=== PATIENT | male | born 1970 | race Caucasian/White ===

== ENCOUNTER 2023-08-17 22:08 | Emergency (ER) | payer SELFPAY ==
--- NOTE | ~2023-08-17 | CT_ITS ---
EXAMINATION: CT abdomen pelvis wo con DATE: 08/17/2023 23:25 INDICATION: Hematuria. Urinary retention. TECHNIQUE: Computed tomography (CT) of the abdomen and pelvis was performed without intravenous contr ast. Automated exposure control and iterative reconstruction technique were employed. The dose-length product was 1221.13 mGy-cm. COMPARISON: None. FINDINGS: The visualized portions of the lung bases are clear without pneumonia or pleural effusion. The heart size is normal. No pericardial effusion. There is diffuse hepatic steatosis. There are herrera ges of cholecystectomy. The spleen, pancreas, and adrenal glands are normal. There is a 12 mm cyst in right kidney. There is a 3 mm stone in left kidney. There is a left inguinal hernia containing fat. The prostate is moderately enlarged. The bladder is decompressed. There are no dilated loops of bowel . The appendix is not visualized. There are no pathologically enlarged lymph nodes. There is no free intraperitoneal fluid. There is severe thoracic and lumbar spondylosis. There is mild chronic anterio r wedging of multiple thoracic vertebral bodies. IMPRESSION: 1. 3 mm nonobstructing left kidney stone. 2. Diffuse hepatic steatosis. Reviewed, dictated and finalized at location E.
[2023-08-17 22:16] VITALS: BP 96/66; PULSE 112; RESP 15; TEMP 36.8; O2SAT 98
[2023-08-17 22:30] LABS: Basophils Absolute Auto 0.1 K/mm3 (0.0-0.1); Basophils Percent Auto 0.4 % (0.2-1.2); Eosinophils Absolute Auto 0.1 K/mm3 (0-0.3); Eosinophils Percent Auto 0.5 % (0-4.4); Hematocrit 47.6 % (42.0-52.0); Hemoglobin 16.6 g/dL (14.0-18.0); Immature Granulocyte Absolute 0.13 K/mm3 (0.00-0.031); Immature Granulocyte Percent A 0.6 % (0-0.5); Lymphocytes Absolute Auto 2.93 K/mm3 (0.9-3.2); Lymphocytes Percent Auto 14.6 % (18.3-44.2); Mean Corpuscular HGB Conc 34.9 g/dl (32-36); Mean Corpuscular Hemoglobin 32.9 pg (26-34); Mean Corpuscular Volume 94.4 fl (80-100); Mean Platelet Volume 9.3 fl (7.4-10.4); Monocytes Absolute Auto 1.3 K/mm3 (0.1-0.6); Monocytes Percent Auto 6.6 % (2.6-8.5); Neutrophils Absolute Auto 15.5 K/mm3 (1.3-6.7); Neutrophils Percent Auto 77.3 % (45.5-73.1); Platelet Count Result 257 k/mm3 (150-375); Red Blood Count 5.04 M/mm3 (4.6-6.20); Red Cell Distribution Width 12.8 % (11.5-14.5)
[2023-08-17 22:40] LABS: Alanine Aminotransferase 23 U/L (6-50); Albumin Level 4.8 g/dL (3.5-5.1); Alkaline Phosphatase 67 U/L (38-126); Anion Gap 11 mmol/L (4-12); Aspartate Amino Transferase 20 U/L (17-59); Bilirubin,Total 1.4 mg/dL (0.2-1.3); Blood Urea Nitrogen 15 mg/dL (9-20); Calcium 9.4 mg/dL (8.4-10.2); Carbon Dioxide 22 mmol/L (22-30); Chloride 103 mmol/L (98-107); Estimated CRCL calculation 83 ml/min; Estimated Glomerular Filt Rate > 60; Glucose 195 mg/dL (65-110); Potassium 3.9 mmol/L (3.4-5.0); Sodium 136 mmol/L (137-145)
--- NOTE | 2023-08-17 23:01 | ED.GENADULT ---
HPI - General Adult General Chief complaint: Urogenital-Male Stated complaint: blood in urine Time Seen by Provider: 08/17/23 22:43 History of Present Illness HPI narrative: This is a 53-year-old male presenting ED with chief complaint of hematuria x1 day.. Associated symptoms include 2 days of fever and chills, and achy testicle pain and diarrhea. Patient has a history BPH and takes Flomax. He denies nausea vomiting, chest pain difficulty breathing or abdominal pain. Patient is not sexually active. No penile discharge or concern for STDs. Related Data Allergies Allergy/AdvReac Type Severity Reaction Status Date / Time Penicillins Allergy Unknown Verified 08/17/23 22:09 shellfish derived Allergy Dyspnea / Verified 08/17/23 22:[address] [facility] Past Medical History Medical History (Updated 08/18/23 @ 01:26 by Viral Leigh MD) BPH (benign prostatic hyperplasia) Exam Narrative: APPEARANCE: No apparent distress. Head: atraumatic. EYES: EOMI, NOSE: Atraumatic NECK: Trachea midline RESPIRATORY: No increased rate of breathing clear to auscultation CARDIOVASCULAR: RRR, ABDOMINAL: Non-distended soft nontender no guarding rebound no CVA tenderness testicle exam: External genitalia normal, diffuse mile tenderness to both testicles with no point tenderness over the epididymis. Normal lie. Cremasteric reflex and intact. MUSCULOSKELETAl: No obvious deformities NEURO: Alert. Moving 4/4 extremities SKIN:: Warm, dry. Normal color PSYCHIATRIC: Normal affect Course Vital Signs Vital signs: Vital Signs Temperature 98.3 F 08/17/23 22:16 Pulse Rate 112 H 08/17/23 22:16 Respiratory Rate 15 08/17/23 22:16 Blood Pressure 96/66 L 08/17/23 22:16 Pulse Oximetry 98 08/17/23 22:16 Oxygen Delivery Room Air 08/17/23 22:16 Temperature 98.3 F 08/17/23 22:16 Pulse Rate 96 08/18/23 00:48 Respiratory Rate 15 08/18/23 00:48 Blood Pressure 88/64 L 08/18/23 00:48 Pulse Oximetry 96 08/18/23 00:48 Oxygen Delivery Room Air 08/17/23 22:16 Medical Decision Making [facility] Narrative Medical decision making narrative: -Course: 53-year-old male presenting with urinary symptoms and hypotension (60/40). Given fluid resuscitation and started on pip/tazo days ago for suspected UTI/orchitis. Improved patient is still hypotensive @ high 80s/50. Workup significant for a white count of 20, lactic 1.5. Urine indicative of infection. CT showed a decompressed urinary bladder any nonobstructing 3 mm left mid pole renal stone. No other findings. Patient in refractory septic shock from UTI. Discussed admission and the patient declined. 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 He initially wanted to leave AMA but of was eventually agreeable to leaving to get his things from a hotel and then states that he will be back to the hospital. At this point patient will leave against medical advice and we hope he returns shortly. 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 CT abdomen pelvis showed a nonobstructing 3 mm left mid pole renal stone and diverticulosis without diverticulitis. Independent EKG interpretation: Rhythm [sinus], Rate [], [place] -[normal], [place] -[normal], QRS [narrow], QTC [normal], T waves -[negative for concerning inversions], ST Segments - [Negative for concerning elevations] Final interpretations: [Normal Sinus Rhythm] -Interventions: Pip/tazo, 3 L normal saline -Shared decision making / Disposition: AGAINST MEDICAL ADVICE. Vital Signs Vital Signs: Vital Signs Temperature 98.3 F 08/17/23 22:16 Pulse Rate 112 H 08/17/23 22:16 Respiratory Rate 15 08/17/23 22:16 Blood Pressure 96/66 L 08/17/23 22:16 Pulse Oximetry
[2023-08-17] MEDS: SODIUM CHLORIDE 0.9% IV 1,000 ML 999 ML IV CONT ×2 (23:06→23:07)
[2023-08-17] MEDS: SODIUM CHLORIDE 0.9% IV 2,000 ML 999 ML IV CONT (23:12)
[2023-08-17] MEDS: PIPERACILLN/TAZ 3.375GM/NS50ML 3.375 GM/50 ML BAG IVPB (23:43)
[2023-08-18 00:23] LABS: Lactic Acid Reflex 1.5 mmol/L (0.7-2.0)
[2023-08-18] MEDS: SODIUM CHLORIDE 0.9% IV 1,000 ML 999 ML IV CONT ×2 (00:42→01:07)
[2023-08-18 00:48] VITALS: BP 88/64; PULSE 96; RESP 15; O2SAT 96
--- NOTE | 2023-08-18 00:48 | PC.NURSE ---
EDP made aware of hypotension.
[2023-08-18 00:51] LABS: Appearance Urine Cloudy (Clear); Color Urine Red (Yellow)
[2023-08-18 00:52] LABS: Glucose Urine UA 3+ mg/dL (Negative); Ketones Urine Trace mg/dL (Negative); Protein Urine 3+ mg/dL (Negative)
[2023-08-18 00:53] LABS: Bilirubin Urine 2+ (Negative); Blood Urine 3+ (Negative); Nitrate Urine Positive (Negative)
[2023-08-18 00:55] LABS: Leukocyte Esterase Ur Negative LEU/UL (Negative)
[2023-08-18 01:01] LABS: Bacteria Urine 2+ /hpf
[2023-08-18 01:02] LABS: Add Urine Microscopic? YES; RBC Urine >100 /hpf (0-2)
--- NOTE | 2023-08-18 01:24 | PC.NURSE ---
Patient expressed wishes to sign out against medical advise due to work. EDP-Dr. Leigh explained risks of leaving and benefits of being hospitalized. Patient verbalizes understanding. AMA form signed by patient, EDP and this RN. Patient ambulates to the waiting room without incident.
[2023-08-18 01:26] VITALS: BP 96/56; PULSE 104; RESP 15; O2SAT 99
== END 2023-08-18 01:28 | disposition left against medical advice (07) ==
PROVIDERS: Emergency Provider Emergency Medicine
DX: N39.0 Urinary tract infection, site not specified (principal); A41.9 Sepsis, unspecified organism; R65.21 Severe sepsis with septic shock; N40.0 Benign prostatic hyperplasia without lower urinary tract symptoms
CPT/HCPCS: 36415; 74176; 80053; 81001; 83605; 85025; 87040; 87077; 87086; 87088; 87186; 96365; 99284; J2543; J7030

== ENCOUNTER 2023-08-18 02:06 | Inpatient (IN) | payer SELFPAY ==
[2023-08-18] VITALS (17 sets, daily range): BP systolic 88–162; BP diastolic 56–75; PULSE 62–99; RESP 12–21; TEMP 36.8–37.1; O2SAT 93–98; BMI 34.7
--- NOTE | ~2023-08-18 | US_ITS ---
EXAMINATION: US scrotum doppler DATE: 08/18/2023 08:46 INDICATION: Pain in testicles. TECHNIQUE: Grayscale and Doppler ultrasound images of the testes were obtained. COMPARISON: CT abdomen and pelvis 08/18/2023 FINDINGS: The right testis measures 4.7 x 2.4 x 2.8. The left testis measures 4.3 x 2.8 x 2.6. There is normal vascular flow to both testes. The right epididymis demonstrates a 10 mm cyst. The left epid idymis is normal with normal vascular flow. There are small bilateral hydroceles. IMPRESSION: 1. Small bilateral hydroceles. Reviewed, dictated and finalized at location E.
--- NOTE | ~2023-08-18 | XR_ITS ---
EXAMINATION: XR chest port-a-cath/central DATE: 08/18/2023 03:01 INDICATION: Central line placement. TECHNIQUE: A single frontal view of the chest was obtained. COMPARISON: Chest single view at 2:28 AM FINDINGS: There is no pneumonia, pleural effusion, or pneumothorax. The heart size is normal. A right internal jugular central venous catheter is seen with tip in the superior vena cava. There are old h ealed left rib fractures. IMPRESSION: 1. Central line tip in the superior vena cava. Reviewed, dictated and finalized at location E.
--- NOTE | ~2023-08-18 | XR_ITS ---
EXAMINATION: XR chest 1V portable DATE: 08/18/2023 02:31 INDICATION: Sepsis. TECHNIQUE: A single frontal view of the chest was obtained. COMPARISON: CT abdomen and pelvis 08/17/2023 FINDINGS: There is no pneumonia, pleural effusion, or pneumothorax. The heart size is normal. IMPRESSION: 1. No acute cardiopulmonary disease. Reviewed, dictated and finalized at location E.
--- NOTE | 2023-08-18 02:12 | ECG_ITS ---
Test Date: 2023-08-18 02:14:00 Measurements Intervals [place] Rate: 96 P: 60 HI: 155 QRS: 259 QRSD: 94 T: 44 QT: 357 QTc: 451 Interpretive Statements SINUS RHYTHM INCOMPLETE RIGHT BUNDLE BRANCH BLOCK [90+ ms QRS DURATION, TERMINAL R IN V1/V2, 40+ ms S IN I/aVL/V4/V5/V6] BORDERLINE ECG No previous ECG available for comparison Electronically Signed On 08-18-2023 15:15:31 CDT by Pedro Wakefield M.D.
--- NOTE | 2023-08-18 02:20 | ED.GENADULT ---
HPI - General Adult General Chief complaint: Urogenital-Male Stated complaint: hematuria Time Seen by Provider: 08/18/23 02:12 History of Present Illness HPI narrative: 53-year-old male with refractory septic shock from urinary tract infection/orchitis. See previous ER note. Since the patient returned to the ED he says he has become moredizzy and lightheaded when walking. He is still having urinary urgency and dysuria with hematuria. Related Data Allergies Allergy/AdvReac Type Severity Reaction Status Date / Time Penicillins Allergy Unknown Verified 08/17/23 22:09 shellfish derived Allergy Dyspnea / Verified 08/17/23 22:09 SOB COUNTS INCLUDE 234 BEDS AT THE [facility] Past Medical History Medical History (Updated 08/18/23 @ 03:06 by Viral Leigh MD) BPH (benign prostatic hyperplasia) Exam Narrative: APPEARANCE: No apparent distress. Head: atraumatic. EYES: EOMI, NOSE: Atraumatic NECK: Trachea midline RESPIRATORY: No increased rate of breathing Clear auscultation CARDIOVASCULAR: RRR, ABDOMINAL: Non-distended soft nontender no guarding rebound no CVA tenderness general exam revealed normal external genitalia, testicles are diffusely tender but no swelling or overlying skin changes. Testicles have normal lie. No palpable crepitus. MUSCULOSKELETAl: No obvious deformities NEURO: Alert. Moving 4/4 extremities SKIN:: Warm, dry. Normal color PSYCHIATRIC: Normal affect Course Vital Signs Vital signs: Vital Signs Temperature 98.4 F 08/18/23 02:12 Pulse Rate 96 08/18/23 02:12 Respiratory Rate 15 08/18/23 02:12 Blood Pressure 102/62 08/18/23 02:12 Pulse Oximetry 98 08/18/23 02:12 Oxygen Delivery Room Air 08/18/23 02:12 Temperature 98.4 F 08/18/23 02:12 Pulse Rate 92 08/18/23 02:16 Respiratory Rate 15 08/18/23 02:16 Blood Pressure 88/56 L 08/18/23 02:16 Pulse Oximetry 95 08/18/23 02:16 Oxygen Delivery Room Air 08/18/23 02:12 Procedures Central Line Placement Right IJ: Central Line Date: 08/18/23 Central Line Time: 02:55 Discussed w/ the patient/family/POA,the placement of a central venous catheter, including its clinical necessity/indication & associated potential risks, benifits and alternatives.: Yes The patient/family/POA understand(s) and acknowledge(s) the need to proceed with central venous catheter insertion as an important element of the patient's clinical management.: Yes Time Out Performed: Yes Patient Placed on Monitor/Pulse Ox: Yes Max. Sterile Barrier Technique: Caps, large sterile sheet and hand hygiene Central Line Prep: 2% chlorhexidine scrub and sterile drapes applied Technique: US-Guided Local Anesthetic: lidocaine 1% and with epi Amount of anesthesia used (mL): 4 Ultrasound Used for Placement: Yes Central Line Lumen Inserted: triple Post Procedure: sutured in place, good blood return, all ports aspirated, flushed, capped and sterile dressing applied Post Procedure X-Ray: tip of catheter in good position Patient Tolerated Procedure: well Complications: none Medical Decision Making MDM Narrative Medical decision making narrative: COURSE: 53-year-old male presenting with hematuria and testicle pain. Hypotensive 60/40 on arrival. Given 4 L normal saline with improvement in blood pressures but still hypotensive at 88/56. Central line placed in the right IJ without complication and started on norepi. Urine indicative of infection. Given Pip/tazo for suspected UTI/orchitis. White count 20. Lactic 1.5. Ultrasound ordered of the testicles which will be performed in morning. very low concern for torsion. Patient will be admitted to the hospital for septic shock requiring vasopressors. -Independent interpretation of studies: CT showed a depressed bladder, a 3 mm left renal stone and diverticulosis without diverticulitis. Independent EKG interpretation: Rhythm
[2023-08-18] MEDS: NOREPINEPHRINE 8 MG/D5W 250 ML 8 MG/250 ML BAG 9.38 MG IV CONT (03:13)
--- NOTE | 2023-08-18 03:50 | PM.IMHP ---
H&P: HPI History of Present Illness Date/Time: 08/18/23 03:50 Chief Complaint: GENERALIZED MALAISE Narrative: THIS IS A 53-YEAR-OLD MALE WITH PAST MEDICAL HISTORY SIGNIFICANT FOR TOBACCO DEPENDENCE, SMOKES 1 PACKET OF CIGARETTES A DAY, BENIGN PROSTATIC HYPERPLASIA. PATIENT PRESENTS TO THE EMERGENCY ROOM WITH HISTORY OF 2 DAYS OF GENERALIZED MALAISE FEVERS CHILLS AND BLOODY DISCHARGE THROUGH HIS PENIS AND SCROTAL DISCOMFORT. PATIENT DENIES ANY DISCHARGE THROUGH HIS PENIS PRIOR TO THESE. HAS HAD DIARRHEA. IN EMERGENCY ROOM PATIENT WAS FOUND TO HAVE A BLOOD PRESSURE OF 60/40. EXAMINATION: XR chest 1V portable DATE: 08/18/2023 02:31 INDICATION: Sepsis. TECHNIQUE: A single frontal view of the chest was obtained. COMPARISON: CT abdomen and pelvis 08/17/2023 FINDINGS: There is no pneumonia, pleural effusion, or pneumothorax. The heart size is normal. IMPRESSION: 1. No acute cardiopulmonary disease. EXAMINATION: CT abdomen pelvis wo con DATE: 08/17/2023 23:25 INDICATION: Hematuria. Urinary retention. TECHNIQUE: Computed tomography (CT) of the abdomen and pelvis was performed without intravenous contrast. Automated exposure control and iterative reconstruction technique were employed. The dose-length product was 1221.13 mGy-cm. COMPARISON: None. FINDINGS: The visualized portions of the lung bases are clear without pneumonia or pleural effusion. The heart size is normal. No pericardial effusion. There is diffuse hepatic steatosis. There are changes of cholecystectomy. The spleen, pancreas, and adrenal glands are normal. There is a 12 mm cyst in right kidney. There is a 3 mm stone in left kidney. There is a left inguinal hernia containing fat. The prostate is moderately enlarged. The bladder is decompressed. There are no dilated loops of bowel. The appendix is not visualized. There are no pathologically enlarged lymph nodes. There is no free intraperitoneal fluid. There is severe thoracic and lumbar spondylosis. There is mild chronic anterior wedging of multiple thoracic vertebral bodies. IMPRESSION: 1. 3 mm nonobstructing left kidney stone. 2. Diffuse hepatic steatosis. Review of Systems Review of Systems: FEVERS, CHILLS, DIARRHEA, PENIS BLOODY DISCHARGE Constitutional: Constitutional: Reports chills, Reports fever(s) and Reports malaise Eyes: Eyes: Denies change in vision ENT: Denies dysphagia, Denies vertigo, Denies dizziness and Denies odynophagia Cardiovascular: Cardiovascular: Denies chest pain Respiratory: Respiratory: Denies cough, Denies excessive phlegm production, Denies dyspnea and Denies wheezing Gastrointestinal: Gastrointestinal: Denies abdominal pain, Denies dyspepsia, Denies heartburn, Reports diarrhea, Denies nausea and Denies vomiting Genitourinary: Genitourinary: Reports hematuria and Reports dysuria Musculoskeletal: Musculoskeletal: Reports myalgias Integumentary/Breasts: Skin/Breast: Denies rash Neurologic: Denies focal weakness and Denies Sensory deficit (Neuro) Psychiatric: Psychiatric: Reports no additional psychiatric complaints and Reports as per HPI Endocrine: Endocrine: Denies cold intolerance, Denies heat intolerance, Denies polyphagia, Denies polydipsia, Denies polyuria and Denies palpitations Hematologic/Lymphatic: Hematologic/Lymphatic: Reports no additional hematologic/lymphatic complaints and Reports as per HPI Allergic/Immunologic: Allergic/Immunologic: Reports no additional allergic/immunologic complaints and Reports as per HPI [facility] Past Medical History Medical History (Updated 08/18/23 @ 12:16 by Thi Gomez PA-C) BPH (benign prostatic hyperplasia) Family History Family History Mother Fibromyalgia Systemic lupus erythematosus, unspecified Diabetes mellitus Heart attack Cerebrovascular accident Father Lung cancer Social History Social History Smoking packs per day: 0.5 S
--- NOTE | 2023-08-18 05:35 | ADMGEN ---
This patient, Sridhar Garcia, was admitted to Intensive Care Unit-3 at 0445. Patient/family oriented to hospital policies and general routines including ID bracelet, bed and alarms, visiting hours, pain management, procedures, bathroom and other care routines, personal items, smoking policy, room service/diet, and visiting hours. Information on how to activate the Rapid Response Team has been discussed. Patient/Family are encouraged to report perceived risks to care and to ask questions if they do not understand what they are told or what they should do.
[2023-08-18] MEDS: LACTATED RINGERS 1,000 ML 125 ML IV CONT (05:36)
[2023-08-18] MEDS: PIPERACILLN/TAZ 3.375GM/NS50ML 3.375 GM/50 ML BAG IVPB ×4 (06:16→22:40)
[2023-08-18 06:56] LABS: MRSA (PCR) NOT DETECTED (NOT DETECTE)
[2023-08-18 08:03] LABS: Basophils Absolute Auto 0.1 K/mm3 (0.0-0.1); Basophils Percent Auto 0.3 % (0.2-1.2); Eosinophils Absolute Auto 0.1 K/mm3 (0-0.3); Eosinophils Percent Auto 0.6 % (0-4.4); Hematocrit 40.3 % (42.0-52.0); Hemoglobin 14.1 g/dL (14.0-18.0); Immature Granulocyte Absolute 0.08 K/mm3 (0.00-0.031); Immature Granulocyte Percent A 0.5 % (0-0.5); Lymphocytes Absolute Auto 2.23 K/mm3 (0.9-3.2); Lymphocytes Percent Auto 15.1 % (18.3-44.2); Mean Corpuscular Volume 94.4 fl (80-100); Monocytes Absolute Auto 1.2 K/mm3 (0.1-0.6); Monocytes Percent Auto 7.9 % (2.6-8.5); Neutrophils Absolute Auto 11.2 K/mm3 (1.3-6.7); Neutrophils Percent Auto 75.6 % (45.5-73.1); Platelet Count Result 201 k/mm3 (150-375); Red Blood Count 4.27 M/mm3 (4.6-6.20); White Blood Count 14.8 K/mm3 (4.5-10.0)
[2023-08-18 08:18] LABS: Lactic Acid Reflex 1.1 mmol/L (0.7-2.0)
[2023-08-18 08:20] LABS: Alanine Aminotransferase 21 U/L (6-50); Albumin Level 3.9 g/dL (3.5-5.1); Alkaline Phosphatase 60 U/L (38-126); Anion Gap 7 mmol/L (4-12); Aspartate Amino Transferase 21 U/L (17-59); Bilirubin,Total 1.4 mg/dL (0.2-1.3); Blood Urea Nitrogen 17 mg/dL (9-20); Calcium 8.4 mg/dL (8.4-10.2); Carbon Dioxide 21 mmol/L (22-30); Chloride 108 mmol/L (98-107); Estimated CRCL calculation 90 ml/min; Estimated Glomerular Filt Rate > 60; Glucose 124 mg/dL (65-110); Potassium 3.5 mmol/L (3.4-5.0); Sodium 136 mmol/L (137-145)
[2023-08-18 08:23] LABS: Magnesium 0.9 mg/dL (1.6-2.3); Phosphorus 2.8 mg/dL (2.5-4.5)
[2023-08-18 08:25] LABS: Hemoglobin A1C 7.7 % (<5.7)
--- NOTE | 2023-08-18 08:47 | WPDCNINT ---
Assessment and Plan Assessment and plan (1) Septic shock: Code(s): A41.9 - Sepsis, unspecified organism; R65.21 - Severe sepsis with septic shock Status: Acute Assessment and Plan: Septic shock most likely related to UTI and/or orchitis -on admission systolic blood pressures were in the 60s, patient was given 4 L IV fluid bolus despite which his blood pressures remain low, right IJ central line was inserted in the ER and patient was started on Levophed and transferred to the ICU -off Levophed since this morning -lactic acid is normal -decreased IV fluids to 75 mL/hour from 125 mL/hour -leukocytosis improving -low urine output with normal kidney function -08/16: urine cultures obtained and pending -08/16: blood cultures obtained and pending -continue Zosyn 08/18/2023: CT scan of the abdomen and pelvis IMPRESSION: 1. 3 mm nonobstructing left kidney stone. 2. Diffuse hepatic steatosis 08/18/2023: Scrotal ultrasound -small bilateral hydroceles (2) Urinary tract infection: Code(s): N39.0 - Urinary tract infection, site not specified Status: Acute Assessment and Plan: UA suggestive of UTI, continue antibiotics as -CT abdomen showed 3 mm nonobstructing left kidney stone -urology has been consulted (3) Acute orchitis: Code(s): N45.2 - Orchitis Status: Acute Assessment and Plan: 08/18/2023: Scrotal ultrasound showed small bilateral hydroceles -no signs of infection on examination (4) Tobacco dependence: Code(s): F17.200 - Nicotine dependence, unspecified, uncomplicated Status: Acute Assessment and Plan: Counseled on cessation of tobacco use (5) Diabetes mellitus: Code(s): E11.9 - Type 2 diabetes mellitus without complications Status: Acute Assessment and Plan: Add sliding scale and Accu-Cheks -hemoglobin A1c this admission is 7.7 (6) Electrolyte imbalance: Code(s): E87.8 - Other disorders of electrolyte and fluid balance, not elsewhere classified Status: Acute Assessment and Plan: Will replace potassium and magnesium (7) Hyperlipidemia: Code(s): E78.5 - Hyperlipidemia, unspecified Status: Acute Assessment and Plan: Continue atorvastatin and fenofibrate (8) BPH (benign prostatic hyperplasia): Code(s): N40.0 - Benign prostatic hyperplasia without lower urinary tract symptoms Status: Acute Assessment and Plan: Continue Flomax Plan DVT prophylaxis: Lovenox Stress ulcer prophylaxis: Not indicated Nutrition: Heart healthy diet Code Status: Full code Critical Care Time Spent: 46 minutes Due to a high probability of clinically significant, life threatening deterioration, the patient required my highest level of preparedness to intervene emergently and I personally spent this critical care time directly and personally managing the patient. This critical care time included obtaining a history; examining the patient; pulse oximetry; ordering and review of studies; arranging urgent treatment with development of a management plan; evaluation of patient's response to treatment; frequent reassessment; and discussions with other providers. It was exclusive of separately billable procedures and treating other patients and teaching time. Please see Assessment and Plan section and the rest of the note for further information on patient assessment and treatment This dictation may have been done utilizing a voice recognition system. Attempts have been made to correct errors. However, there may be uncorrected grammatical, spelling, and recognitions errors present. Reimbursement Representative Consult Note Consult date: 08/18/23 Reason for consult: Septic shock, UTI, orchitis, hematuria, fevers, chills, testicular pain, diarrhea HPI: Sridhar Garcia is a 53 year old male with history of BPH, diabetes, asthma, hyperlipidemia presented the ED on 08/17/2023 with complains of hematuria, fevers, chills, testicula
[2023-08-18] MEDS: POTASSIUM CHLORIDE 20 MEQ ER TABLET 40 MEQ PO (08:48)
[2023-08-18] MEDS: ATORVASTATIN 40 MG TABLET 80 MG PO (08:49)
[2023-08-18] MEDS: FENOFIBRATE NANOCRYSTALLIZED 145 MG TABLET PO (08:50)
[2023-08-18] MEDS: ENOXAPARIN 40 MG/0.4 ML SYRINGE SUB-Q (08:50)
[2023-08-18] MEDS: MAGNESIUM SULFATE 3GM/D5W100ML 3 GM/100 ML BAG IVPB (08:52)
--- NOTE | 2023-08-18 10:01 | WPDURCON ---
Assessment and Plan Assessment and plan (1) Urinary tract infection: Code(s): N39.0 - Urinary tract infection, site not specified Status: Acute Assessment and Plan: Continue empiric antibiotics while awaiting urine culture results. Blood cultures pending. Remains afebrile. Monitor WBC. (2) Gross hematuria: Code(s): R31.0 - Gross hematuria Status: Acute Assessment and Plan: Likely secondary to acute UTI. Hematuria has resolved. Recommend he re-establish with his urologist back home in [place] following discharge for f/u to ensure resolution of hematuria after completion of antibiotics. If persistent, would need to proceed with cystoscopy for complete evaluation. (3) BPH (benign prostatic hyperplasia): Code(s): N40.0 - Benign prostatic hyperplasia without lower urinary tract symptoms Status: Acute Assessment and Plan: Continue tamsulosin (4) Testicular pain, unspecified: Code(s): N50.819 - Testicular pain, unspecified Status: Resolved Assessment and Plan: Scrotal US reviewed with small bilateral hydroceles. No evidence of epididymitis or orchitis. Pain has resolved. (5) Left renal stone: Code(s): N20.0 - Calculus of kidney Status: Acute Assessment and Plan: 3 mm nonobstructing left renal stone noted on CT. Continue to observe Urology Consult Note HPI Date Seen: 08/18/23 Requesting Physician: Laura Jackman MD Primary Care Provider: UNKNOWN,DOCTOR Consult Narrative Narrative: Sridhar Garcia is a 53 year old male with history of BPH maintained on tamsulosin who is visiting the area from [place] and is currently admitted for septic shock due to UTI. He presented to the emergency department on 08/17/2023 with complaints of hematuria ongoing for 1 day. One day prior to that, he had noticed sweats and chills and was overall feeling unwell. He then noticed some bloody specks in his urine that progressed to grossly bloody urine with clots. He felt he was straining to void and complained of dysuria. He also had generalized testicular soreness that he could not particularly localize. On arrival to the emergency department, he was hypotensive. Labs demonstrated elevated white blood cell count of 20.0 with normal creatinine of 1.2, normal lactic acid 1.5, and grossly abnormal urinalysis. Initially left against medical advice and shortly returned several hours later. CT of his abdomen/pelvis was completed which showed 12 mm right renal cyst, 3 mm nonobstructing left kidney stone, moderately enlarged prostate and decompressed bladder. He was started on empiric antibiotics. A central line was placed and he was started on pressors and admitted to the ICU. At the time of my evaluation, the patient states that he is feeling improved. He denies nausea, vomiting, fever, chills, or sweats. He feels that he is no longer straining to void and his dysuria has improved. Reports that hematuria has resolved. Testicular pain is resolved. He was previously established with a urologist in [place] several years ago but never followed up. He does remain compliant with his tamsulosin which has been managed by his PCP. Review of Systems Review of Systems: All systems reviewed & are unremarkable except as noted in HPI and below PMFSH Past Medical History Medical History (Updated 08/18/23 @ 12:16 by Thi Gomez PA-C) BPH (benign prostatic hyperplasia) Family History Family History Mother Fibromyalgia Systemic lupus erythematosus, unspecified Diabetes mellitus Heart attack Cerebrovascular accident Father Lung cancer Social History Social History Smoking packs per day: 0.5 Smoking cigarettes per day: 10.0 Smoking status: Current every day smoker Alcohol intake: never Substance use type: marijuana Do You Feel Safe in your Home?: Yes Lack of Transp
[2023-08-18] MEDS: TAMSULOSIN HCL 0.4 MG CAPSULE PO (10:03)
[2023-08-18] MEDS: rOPINIRole HCL 1 MG TABLET PO ×2 (10:04→22:35)
[2023-08-18 10:21] LABS: Glucose Point of Care 172 mg/dl (65-105)
[2023-08-18 11:27] LABS: Glucose Point of Care 135 mg/dl (65-105)
[2023-08-18] MEDS: CENTRAL LINE FLUSH 10 ML IV PUSH ×2 (14:30→22:39)
[2023-08-18 16:11] LABS: Glucose Point of Care 168 mg/dl (65-105)
[2023-08-18] MEDS: LACTATED RINGERS 1,000 ML 75 ML IV CONT (17:12)
--- NOTE | 2023-08-18 18:00 | PC.NURSE ---
This patient, Sridhar Garcia, was transferred to [facility] via wheelchair without issue on 08/18/23 at 1755. Personal belongings sent with patient. Report given to ACACIA Goss. Appropriate documentation sent with patient.
--- NOTE | 2023-08-18 18:16 | PC.NURSE ---
This patient, Sridhar Garcia, was received from [ICU-3] on 08/18/23 at 1816. Patient/family oriented to unit policies and routines
[2023-08-18 20:27] LABS: Glucose Point of Care 137 mg/dl (65-105)
[2023-08-19] MEDS: PIPERACILLN/TAZ 3.375GM/NS50ML 3.375 GM/50 ML BAG IVPB (05:28)
[2023-08-19] MEDS: CENTRAL LINE FLUSH 10 ML IV PUSH (05:28)
[2023-08-19 05:37] LABS: Basophils Percent Auto 0.4 % (0.2-1.2); Eosinophils Absolute Auto 0.3 K/mm3 (0-0.3); Eosinophils Percent Auto 2.7 % (0-4.4); Hematocrit 42.9 % (42.0-52.0); Hemoglobin 14.9 g/dL (14.0-18.0); Immature Granulocyte Absolute 0.04 K/mm3 (0.00-0.031); Immature Granulocyte Percent A 0.4 % (0-0.5); Lymphocytes Absolute Auto 2.02 K/mm3 (0.9-3.2); Lymphocytes Percent Auto 20.9 % (18.3-44.2); Mean Corpuscular HGB Conc 34.7 g/dl (32-36); Mean Corpuscular Hemoglobin 33.1 pg (26-34); Mean Corpuscular Volume 95.3 fl (80-100); Monocytes Absolute Auto 0.9 K/mm3 (0.1-0.6); Monocytes Percent Auto 8.8 % (2.6-8.5); Neutrophils Absolute Auto 6.5 K/mm3 (1.3-6.7); Neutrophils Percent Auto 66.8 % (45.5-73.1); Platelet Count Result 186 k/mm3 (150-375); Red Cell Distribution Width 12.6 % (11.5-14.5); White Blood Count 9.7 K/mm3 (4.5-10.0)
[2023-08-19 05:49] VITALS: BP 134/92; PULSE 73; RESP 17; TEMP 36.2; O2SAT 97
[2023-08-19 05:50] LABS: Alanine Aminotransferase 20 U/L (6-50); Albumin Level 4.1 g/dL (3.5-5.1); Alkaline Phosphatase 63 U/L (38-126); Anion Gap 7 mmol/L (4-12); Aspartate Amino Transferase 20 U/L (17-59); Bilirubin,Total 0.9 mg/dL (0.2-1.3); Blood Urea Nitrogen 15 mg/dL (9-20); Calcium 8.8 mg/dL (8.4-10.2); Carbon Dioxide 25 mmol/L (22-30); Chloride 108 mmol/L (98-107); Estimated CRCL calculation 105 ml/min; Estimated Glomerular Filt Rate > 60; Glucose 109 mg/dL (65-110); Magnesium 2.1 mg/dL (1.6-2.3); Phosphorus 3.4 mg/dL (2.5-4.5); Potassium 4.2 mmol/L (3.4-5.0); Sodium 140 mmol/L (137-145)
[2023-08-19 07:52] LABS: Glucose Point of Care 123 mg/dl (65-105)
[2023-08-19 08:46] VITALS: O2SAT 97
[2023-08-19] MEDS: TAMSULOSIN HCL 0.4 MG CAPSULE PO (08:47)
[2023-08-19] MEDS: ATORVASTATIN 40 MG TABLET 80 MG PO (08:47)
[2023-08-19] MEDS: ENOXAPARIN 40 MG/0.4 ML SYRINGE SUB-Q (08:47)
[2023-08-19] MEDS: FENOFIBRATE NANOCRYSTALLIZED 145 MG TABLET PO (08:47)
--- NOTE | 2023-08-19 09:57 | WPDUROPN2 ---
Progress Note: A&P Assessment and Plan (1) Urinary tract infection: Code(s): N39.0 - Urinary tract infection, site not specified Status: Acute Assessment and Plan: Preliminary urine culture with growth of E. coli. Continue empiric antibiotics while awaiting urine culture results. Blood cultures pending, negative to date. Remains afebrile. WBC normalized. (2) Gross hematuria: Code(s): R31.0 - Gross hematuria Status: Acute Assessment and Plan: Likely secondary to acute UTI. Hematuria has resolved. Recommend he re-establish with his urologist back home in [place] following discharge for f/u to ensure resolution of hematuria after completion of antibiotics. If persistent, would need to proceed with cystoscopy for complete evaluation. (3) BPH (benign prostatic hyperplasia): Code(s): N40.0 - Benign prostatic hyperplasia without lower urinary tract symptoms Status: Acute Assessment and Plan: Continue tamsulosin (4) Testicular pain, unspecified: Code(s): N50.819 - Testicular pain, unspecified Status: Resolved Assessment and Plan: Scrotal US reviewed with small bilateral hydroceles. No evidence of epididymitis or orchitis. Pain has resolved. (5) Left renal stone: Code(s): N20.0 - Calculus of kidney Status: Acute Assessment and Plan: 3 mm nonobstructing left renal stone noted on CT. Continue to observe Subjective Subjective Date/Time Seen: 08/19/23 09:57 Interval history: Sridhar is feeling much improved today. He was able to be downgraded from the ICU. He is voiding without difficulty. Denies dysuria, hematuria, straining to void, urgency, frequency. Denies testicular pain. Denies nausea, vomiting, fever, chills. He is very eager for discharge today as he wants to get back to work promptly Review of Systems Review of Systems: All systems reviewed & are unremarkable except as noted in HPI and below Exam Narrative: General: Awake, alert, comfortable, no acute distress HEENT: Normocephalic, atraumatic, sclerae anicteric Respiratory: Normal respiratory effort, no accessory muscle use Abdomen: Nondistended, soft, nontender Skin: Normal coloration, warm and dry Neurologic: No focal neuro deficits noted Psychiatric: Appropriate mood and affect, judgment and insight intact Objective Data Vital Signs Vital Signs: Vital Signs - 24 hr 08/18/23 10:00 08/18/23 10:00 08/18/23 12:00 Temperature 98.6 F Pulse Rate 67 65 75 Respiratory Rate 15 12 Blood Pressure 124/73 120/73 Pulse Oximetry 97 95 Oxygen Delivery 08/18/23 12:00 08/18/23 12:00 08/18/23 16:00 Temperature 98.3 F Pulse Rate 71 67 Respiratory Rate 18 Blood Pressure 116/61 Pulse Oximetry 93 97 Oxygen Delivery Room Air 08/18/23 20:33 08/18/23 20:00 08/19/23 05:49 Temperature 98.5 F 97.1 F L Pulse Rate 70 73 Respiratory Rate 16 17 Blood Pressure 126/69 134/92 H Pulse Oximetry 98 97 Oxygen Delivery Room Air Intake/Output Intake/Output: Intake & Output 08/16/23 08/17/23 08/18/23 08/19/23 23:59 23:59 23:59 23:59 Intake Total 2192.6 700 Output Total 1575 725 Balance 617.6 -25 Meds/Results Medications: Active Medications Generic Name Dose Route Start Last Admin Trade Name Freq PRN Reason Stop Dose Admin Acetaminophen 650 mg 08/18/23 23:09 Acetaminophen 325 Mg Tablet PO Q6H PRN Mild Pain (1-3) or Fever Albuterol 2.5 mg 08/18/23 07:39 Albuterol Sulfate Neb 2.5 Mg/3 Ml Inh INHALATION Q6H PRN Shortness Of Breath Or Wheezing Albuterol 2 puff 08/18/23 07:39 Albuterol Sulfate (*Sp) Aerosol 1 Puff INHALATION Q4H PRN Shortness Of Breath Or Wheezing Atorvastatin Calcium 80 mg 08/18/23 09:00 08/19/23 08:47 Atorvastatin 40 Mg Tablet PO 80 mg DAILY SHELLY Administration Dextrose 12.5 gm 08/18/23 07:39 Dextrose 50% 25 Gm/50
--- NOTE | 2023-08-19 11:05 | PM.DS ---
DS: Admitting Diagnosis Discharge Date 08/19/2023 Admitting Diagnosis Hematuria DS: Discharge Diagnosis Discharge Diagnosis (1) Urinary tract infection: Code(s): N39.0 - Urinary tract infection, site not specified Status: Acute (2) Gross hematuria: Code(s): R31.0 - Gross hematuria Status: Acute (3) BPH (benign prostatic hyperplasia): Code(s): N40.0 - Benign prostatic hyperplasia without lower urinary tract symptoms Status: Acute (4) Testicular pain, unspecified: Code(s): N50.819 - Testicular pain, unspecified Status: Resolved (5) Left renal stone: Code(s): N20.0 - Calculus of kidney Status: Acute DS: Summary Hospital Course Hospital Course: Sridhar Garcia is a 53 year old male with history of BPH, diabetes, asthma, hyperlipidemia presented the ED on 08/17/2023 with complains of hematuria, fevers, chills, testicular pain and diarrhea for 2 days. 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 In the ER WBC count was 20, hemoglobin and platelet counts were normal. Lactic was 1.5, LFTs were normal, T bili was 1.4. UA suggestive of UTI. Chest x-ray on admission did not show any acute cardiopulmonary disease. Abdominal CT scan on admission showed 3 mm nonobstructing left kidney stone. Diffuse hepatic steatosis. Patient was Started on Zosyn for possible UTI/orchitis and was transferred to the ICU for further management. Promptly patient was off Levophed 08/18/2023. Blood culture were negative today were pending urine culture pending susceptibility with E coli growing. Patient adamant at going home due to his work. He left against medical advice. Pending culture for urine. He was given a script for cefdinir at discharge. Advised to hold lisinopril and also Jardiance to follow-up with PCP and/or urologist. He verbalized understanding Time Spent with Patient Time attestation: Total time spent providing and/or coordinating discharge services: 35 minutes Exam Narrative: General: Awake, alert, comfortable, no acute distress HEENT: Normocephalic, atraumatic, sclerae anicteric Respiratory: Normal respiratory effort, no accessory muscle use Abdomen: Nondistended, soft, nontender Skin: Normal coloration, warm and dry Neurologic: No focal neuro deficits noted Psychiatric: Appropriate mood and affect, judgment and insight intact DS: Data Data Completed and Pending Labs on day of discharge: Labs from last 24 hours 08/19/23 08/19/23 08/18/23 07:44 05:28 20:10 WBC 9.7 RBC 4.50 L Hgb 14.9 Hct 42.9 MCV 95.3 MCH 33.1 MCHC 34.7 RDW 12.6 Plt Count 186 MPV 9.0 Immature Gran % (Auto) 0.4 Neut % (Auto) 66.8 Lymph % (Auto) 20.9 Bent % (Auto) 8.8 H Eos % (Auto) 2.7 Baso % (Auto) 0.4 Lymph # (Auto) 2.02 Bent # (Auto) 0.9 H Eos # (Auto) 0.3 Baso # (Auto) 0.0 Abs Immat Gran (auto) 0.04 H Absolute Neuts (auto) 6.5 Absolute Nucleated RBC 0.000 Nucleated RBC % 0.0 Sodium 140 Potassium 4.2 Chloride 108 H Carbon Dioxide 25 Anion Gap 7 BUN 15 Creatinine 0.90 Estim Creat Clear Calc 105 Estimated GFR > 60 Glucose 109 POC Capillary Glucose 123 H 137 H Calcium 8.8 Phosphorus 3.4 Magnesium 2.1 Total Bilirubin 0.9 AST 20 ALT 20 Alkaline Phosphatase 63 Total Protein 7.0 Albumin 4.1 08/18/23 08/18/23 16:09 11:25 WBC RBC Hgb Hct MCV MCH MCHC RDW Plt Count MPV Immature Gran % (Auto) Neut % (Auto) Lymph % (Auto) Bent % (Auto) Eos % (Auto) Baso % (Auto) Lymph # (Auto) Bent # (Auto
== END 2023-08-19 11:15 | disposition left against medical advice (07) | DRG 720 ==
LOC: ANHED 03:06 → ANHICU 04:24 → ANH3MEDSUR 18:10
PROVIDERS: Internal Medicine; Admitting Provider Internal Medicine; Emergency Provider Emergency Medicine; Visit Provider Internal Medicine
DX: A41.9 Sepsis, unspecified organism (principal); R65.21 Severe sepsis with septic shock; N39.0 Urinary tract infection, site not specified; N43.3 Hydrocele, unspecified; N50.819 Testicular pain, unspecified; N40.0 Benign prostatic hyperplasia without lower urinary tract symptoms; E66.9 Obesity, unspecified; Z68.32 Body mass index [BMI] 32.0-32.9, adult; F17.210 Nicotine dependence, cigarettes, uncomplicated; E78.5 Hyperlipidemia, unspecified; E11.9 Type 2 diabetes mellitus without complications; R31.0 Gross hematuria; N20.0 Calculus of kidney; K76.0 Fatty (change of) liver, not elsewhere classified
CPT/HCPCS: 36415; 36556; 71045; 76870; 80053; 82948; 83036; 83605; 83735; 84100; 85025; 87641; 93005; 93976; 96365; 99285; A9270; C1751; J1650; J2543; J3475; J7120